=== PATIENT | female | born 1975 | race Caucasian/White ===

== ENCOUNTER 2020-04-03 10:27 | Outpatient (CLI) | payer OTHER, SELFPAY | END 2020-04-03 10:28 | disposition home or self-care (01) | LOC: LAB 10:35 | PROVIDERS: Visit Provider Internal Medicine | DX: R21 Rash and other nonspecific skin eruption (principal) | CPT/HCPCS: 86003 ==

== ENCOUNTER → 2020-05-01 10:13 | Outpatient (BNVA) | payer OTHER, SELFPAY | PROVIDERS: PCP Internal Medicine; Referring Provider Internal Medicine; Visit Provider Dermatology | DX: L24.9 Irritant contact dermatitis, unspecified cause (principal) | CPT/HCPCS: 99203 ==

== ENCOUNTER → 2020-05-14 15:40 | Outpatient (BNVA) | payer OTHER, SELFPAY | PROVIDERS: PCP Internal Medicine; Visit Provider Dermatology | DX: L24.9 Irritant contact dermatitis, unspecified cause (principal) | CPT/HCPCS: 99212; 99213 ==

== ENCOUNTER 2020-07-16 08:05 | Outpatient (CLI) | payer OTHER, SELFPAY ==
--- NOTE | 2020-07-16 08:11 | MM_ITS ---
WS: [id number] BILATERAL SCREENING DIGITAL MAMMOGRAM WITH CAD HISTORY: SCREENING COMPARISON: 07/05/2019, 06/19/2018 and 06/17/2017 Bilateral CC and MLO views submitted. Computer aided detection analyzed. Breast composition: There are scattered areas of fibroglandular density. No suspicious masses, microc alcifications or architectural distortion. Asymmetries and nodules are most prominent throughout the LEFT breast. This pattern has been present over multiple prior years. MM/[place] [id number] IMPRESSION: BI-RADS: 2-Benign FOLLOW UP: 1 Year Follow-up
== END 2020-07-16 08:06 | disposition home or self-care (01) ==
LOC: RADSHAW 08:10
PROVIDERS: PCP Internal Medicine; Visit Provider Internal Medicine
DX: Z12.31 Encounter for screening mammogram for malignant neoplasm of breast (principal)
CPT/HCPCS: 77067

== ENCOUNTER → 2020-08-10 13:02 | Outpatient (BNVA) | payer OTHER, SELFPAY | PROVIDERS: PCP Internal Medicine; Visit Provider Nurse Practitioner Family | DX: Z20.828 Contact with and (suspected) exposure to other viral communicable diseases (principal) | CPT/HCPCS: 87635 ==

== ENCOUNTER → 2021-04-28 13:34 | Outpatient (BNVA) | payer OTHER, SELFPAY | PROVIDERS: PCP Internal Medicine; Visit Provider Internal Medicine | DX: Z15.89 Genetic susceptibility to other disease (principal); M25.50 Pain in unspecified joint; H20.9 Unspecified iridocyclitis; Z11.59 Encounter for screening for other viral diseases; Z11.1 Encounter for screening for respiratory tuberculosis; M54.5 Low back pain; R21 Rash and other nonspecific skin eruption; Z79.899 Other long term (current) drug therapy | CPT/HCPCS: 36415; 99204 ==

== ENCOUNTER 2021-04-28 16:03 | Outpatient (CLI) | payer OTHER, SELFPAY ==
--- NOTE | 2021-04-28 16:14 | XR_ITS ---
WS: [id number] XR foot LT 2V [id number] REASON FOR EXAM: M25.50 - Pain in unspecified joint FINDINGS: The joint spaces of the forefoot, midfoot, and hindfoot are intact and well preserved. No bony abnormality is identified within the forefoot, midfoot, or hindfoot. No soft tissue abnormality is identified. On a single view there is an abnormality of the distal most left fibula which is a lesion with mixed sclerosis and lucency in a bubbly pattern. Nonaggressive in appearance. XR/XR foot LT 2V [id number] IMPRESSION: No significant abnormality of the foot. Possible benign cartilage tumor of the distal left fibula. Enchondroma, chondro myxoid fibroma? No previous examination for comparison.
--- NOTE | 2021-04-28 16:14 | XR_ITS ---
WS: [id number] XR hand RT 2V [id number] REASON FOR EXAM: Z15.89 - Genetic susceptibility to other disease FINDINGS: The joint spaces of the right hand are intact and well preserved. No bony abnormality is identified. No soft tissue abnormalities identified. XR/XR hand RT 2V 28082 IMPRESSION: No significant abnormality.
--- NOTE | 2021-04-28 16:14 | XR_ITS ---
WS: [id number] XR foot RT 2V 58763 REASON FOR EXAM: M25.50 - Pain in unspecified joint FINDINGS: The joint spaces of the forefoot, midfoot, and hindfoot are intact and well preserved. No bony abnormality identified within the forefoot, midfoot, or hindfoot. No soft tissue abnormality XR/XR foot RT 2V 01083 IMPRESSION: No significant abnormality.
--- NOTE | 2021-04-28 16:14 | XR_ITS ---
WS: [id number] XR hand LT 2V 93541 REASON FOR EXAM: Z15.89 - Genetic susceptibility to other disease FINDINGS: The joint spaces of the hand are intact and well preserved. No bony abnormality is identified. No soft tissue abnormality. XR/XR hand LT 2V 05649 IMPRESSION: No significant abnormality.
--- NOTE | 2021-04-28 16:14 | XR_ITS ---
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 Normal intervertebral disc spaces appear Normal thoracic spine alignment. XR/XR thoracic spine 3V* 63722 IMPRESSION: No significant abnormality.
--- NOTE | 2021-04-28 16:14 | XR_ITS ---
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 Intervertebral disc spaces are well preserved. Normal facet joints. No spondylolisthesis or spondylolysis. XR/XR lumbar spine 2-3V* 14326 IMPRESSION: No significant abnormality.
--- NOTE | 2021-04-28 16:14 | XR_ITS ---
WS: [id number] XR sacroiliac jts m 3V 21049 REASON FOR EXAM: L40.9 - Psoriasis, unspecified FINDINGS: Sacroiliac joints are well defined with intact cortical margins. No bridging or fusion. No erosions. XR/XR sacroiliac jts m 3V 50594 IMPRESSION: No significant abnormality.
== END 2021-04-28 16:04 | disposition home or self-care (01) ==
LOC: RAD 16:08
PROVIDERS: PCP Internal Medicine; Visit Provider Internal Medicine
DX: L40.9 Psoriasis, unspecified (principal); Z15.89 Genetic susceptibility to other disease; M25.50 Pain in unspecified joint; Z11.59 Encounter for screening for other viral diseases; Z11.1 Encounter for screening for respiratory tuberculosis
CPT/HCPCS: 72072; 72100; 72202; 73120; 73620; 80053; 85025; 85651; 86140; 86431; 86480; 86704; 86803; 86812; 87340

== ENCOUNTER 2021-07-16 08:15 | Outpatient (CLI) | payer OTHER, SELFPAY ==
--- NOTE | 2021-07-16 08:21 | MM_ITS ---
WS: [id number] BILATERAL SCREENING DIGITAL MAMMOGRAM WITH CAD HISTORY: SCREENING COMPARISON: 07/16/2020, 07/05/2019 06/19/2018 Bilateral CC and MLO views submitted. Computer aided detection analyzed. Breast composition: There are scattered areas of fibroglandular density. No suspicious masses, microc alcifications or architectural distortion. No change in the parenchymal pattern or mild asymmetries w ithin the upper outer quadrant of the LEFT breast. MM/[place] [id number] IMPRESSION: BI-RADS: 2-Benign FOLLOW UP: 1 Year Follow-up
== END 2021-07-16 08:16 | disposition home or self-care (01) ==
LOC: RADSHAW 08:19
PROVIDERS: PCP Internal Medicine; Visit Provider Internal Medicine
DX: Z12.31 Encounter for screening mammogram for malignant neoplasm of breast (principal)
CPT/HCPCS: 77067

== ENCOUNTER 2022-07-30 08:24 | Outpatient (CLI) | payer OTHER, SELFPAY ==
--- NOTE | 2022-07-30 08:30 | MM_ITS ---
WS: [id number] Bilateral screening 3D tomosynthesis digital mammogram, 07/30/2022 Clinical Data: SCREENING Comparison: 07/16/2021, 07/16/2020, 07/05/2019, 06/19/2018, 06/21/2007, 12/13/2016, 06/16/2016, 05/31/2016, 05/27/2015, 06/26/2014, 06/06/2014, 05/24/2014. Findings: The breast parenchymal pattern shows fibroglandular tissue. No spiculated masses or clustered calcifi cations are seen. There are no secondary signs of carcinoma. There is asymmetric tissue in the upper outer quadrant of the left breast unchanged. MM/[place] [id number] Impression: 1. Negative bilateral mammogram unchanged. 2. Recommend annual screening mammograms. BIRADS: 1-Negative FOLLOW UP: 1 Year Follow-up The CAD broadcast checker was used.
== END 2022-07-30 08:25 | disposition home or self-care (01) ==
LOC: RAD 08:25
PROVIDERS: PCP Internal Medicine; Visit Provider Internal Medicine
DX: Z12.31 Encounter for screening mammogram for malignant neoplasm of breast (principal)
CPT/HCPCS: 77063; 77067

== ENCOUNTER 2023-08-05 08:18 | Outpatient (CLI) | payer OTHER, SELFPAY ==
--- NOTE | 2023-08-05 08:29 | MM_ITS ---
WS: [id number] SCREENING DIGITAL BREAST TOMOSYNTHESIS MAMMOGRAM WITH CAD HISTORY: SCREENING COMPARISON: 07/30/2022, 07/16/2021 and 06/19/2018 Bilateral CC and MLO with tomosynthesis and synthetic mammography submitted. Computer aided detection analyzed. Breast composition: There are scattered areas of fibroglandular density. Focal asymmetry in the centr al LEFT breast seen best on the CC projection is more prominent than on prior studies. This is probab ly at or just above the nipple line on the lateral projection. Benign calcification or biopsy clip in the medial RIGHT breast. IMPRESSION: MM/[place] [id number] BI-RADS: 0-Incomplete: Need additional imaging evaluation FOLLOW UP: Need Additional Imaging LEFT breast: Spot compression views (CC and MLO). True ML. Ultrasound to follow if abnormality persists.
== END 2023-08-05 08:19 | disposition home or self-care (01) ==
PROVIDERS: PCP Internal Medicine; Visit Provider Internal Medicine
DX: Z12.31 Encounter for screening mammogram for malignant neoplasm of breast (principal)
CPT/HCPCS: 77063; 77067

== ENCOUNTER 2023-08-30 11:19 | Outpatient (CLI) | payer OTHER, SELFPAY ==
--- NOTE | 2023-08-30 11:28 | MM_ITS ---
WS: [id number] ADDITIONAL VIEWS LEFT MAMMOGRAM with tomosynthesis. LEFT BREAST ULTRASOUND HISTORY: ABNORMAL MAMMO COMPARISON: 08/05/2023, 07/30/2022 and 07/16/2021 LEFT MAMMOGRAM: Spot compression views and true ML with tomosynthesis and sympathetic mammography. Asymmetry improves towards the upper outer quadrant of the LEFT breast but there is still a 6 mm asym metry seen best on the CC projection which needs further evaluation. There is dense fibroglandular ti ssue towards the upper outer quadrant. Ultrasound to follow. LEFT BREAST ULTRASOUND 2-D and color Doppler imaging submitted. There is a dense fibrous band of tissue in the upper outer quadrant towards 12:00 of the LEFT breast. There is no mass identified. IMPRESSION: MM/[place] [id number] BI-RADS: 2-Benign FOLLOW UP: 1 Year Follow-up
== END 2023-08-30 11:20 | disposition home or self-care (01) ==
PROVIDERS: PCP Internal Medicine; Visit Provider Internal Medicine
DX: R92.8 Other abnormal and inconclusive findings on diagnostic imaging of breast (principal)
CPT/HCPCS: 76642; 77061; G0279

== ENCOUNTER 2024-04-09 10:20 | Outpatient (CLI) | payer OTHER, SELFPAY ==
--- NOTE | 2024-04-09 10:32 | US_ITS ---
WS: [id number] US transvaginal [id number] HISTORY: MENORRHALGIA COMPARISON: None available. Uterus: 6.9 cm x 3.3 cm x 2.9 cm. Small mildly atrophied uterus. No fibroid or mass. Endometrium: 0.4 cm. Normal. Right ovary: RIGHT ovary not identified. No adnexal mass. Left ovary: 2.2 cm x 1.2 cm x 1.1 cm. Normal size and vascularity, no cystic or solid masses. No free fluid in the cul-de-sac. US/US transvaginal [id number] IMPRESSION: 1. Normal endometrium. 2. Mild uterine atrophy. No fibroid or mass. 3. RIGHT ovary not visualized.
== END 2024-04-09 10:21 | disposition home or self-care (01) ==
LOC: RAD 10:20
PROVIDERS: PCP Internal Medicine; Visit Provider Internal Medicine
DX: N94.6 Dysmenorrhea, unspecified (principal); N85.8 Other specified noninflammatory disorders of uterus
CPT/HCPCS: 76830

== ENCOUNTER → 2024-07-02 09:08 | Outpatient (BNVA) | payer OTHER, SELFPAY | PROVIDERS: PCP Internal Medicine; Visit Provider Podiatrist Foot & Ankle Surgery | DX: M79.671 Pain in right foot (principal); M79.672 Pain in left foot; M72.2 Plantar fascial fibromatosis | CPT/HCPCS: 73630 ==

== ENCOUNTER 2024-08-31 08:43 | Outpatient (CLI) | payer OTHER, SELFPAY ==
--- NOTE | 2024-08-31 08:47 | MM_ITS ---
WS: [id number] SCREENING DIGITAL BREAST TOMOSYNTHESIS MAMMOGRAM WITH CAD HISTORY: SCREENING COMPARISON: 06/19/2018, 07/05/2019, 08/05/2023 and 08/30/2023 Bilateral CC and MLO with tomosynthesis and synthetic mammography submitted. Computer aided detection analyzed. Breast composition: The breasts are heterogeneously dense, which may obscure small masses. Oval mass slightly obscured in the upper outer quadrant of the LEFT breast is identified. This mass has been pr esent on prior studies but appears slightly more dense today. Suggest reevaluation. Masses measuring 10 x 4 x 8 mm. No additional suspicious findings. MM/MM scr [place] tomosynthesis [id number] IMPRESSION: BI-RADS: 0 - Incomplete: Need additional imaging evaluation FOLLOW UP: Need Additional Imaging LEFT breast: Spot compression views (CC and MLO). True ML. Ultrasound to follow if abnormality persists.
== END 2024-08-31 08:44 | disposition home or self-care (01) ==
LOC: RAD 08:46
PROVIDERS: PCP Internal Medicine; Visit Provider Internal Medicine
DX: Z12.31 Encounter for screening mammogram for malignant neoplasm of breast (principal); R92.333 Mammographic heterogeneous density, bilateral breasts; N63.21 Unspecified lump in the left breast, upper outer quadrant
CPT/HCPCS: 77063; 77067

== ENCOUNTER 2024-09-18 10:52 | Outpatient (CLI) | payer OTHER, SELFPAY ==
--- NOTE | 2024-09-18 10:56 | MM_ITS ---
WS: [id number] ADDITIONAL VIEWS LEFT MAMMOGRAM with tomosynthesis. LEFT BREAST ULTRASOUND HISTORY: ABNORMAL MAMMOGRAM COMPARISON: 08/31/2024, 08/30/2023, 08/05/2023 and 07/30/2022 LEFT MAMMOGRAM: Spot compression views and true ML with tomosynthesis and sympathetic mammography. Asymmetry in the upper outer quadrant of the LEFT breast has been noted on prior studies. Ovoid nodule seen in the lateral breast near 3:00. Nodule measures approximately 10 mm and is only seen on the CC projection. There is dense fibroglandular tissue. The entire LEFT upper outer quadrant will be evaluated by ultrasound. LEFT BREAST ULTRASOUND 2-D and color Doppler imaging submitted. Dense heterogeneous fibroglandular tissue in the upper outer quadrant. There are few small cysts in the LEFT breast at 3:00, 1 cm from the nipple which correspond in size and location to a nodule on mammography. No areas of shadowing or distortion. No masslike configuration. MM/MM diag LT tomosynthesis [id number] IMPRESSION: BI-RADS: 2 - Benign FOLLOW UP: 1 Year Follow-up
== END 2024-09-18 10:53 | disposition home or self-care (01) ==
LOC: RAD 10:54
PROVIDERS: PCP Internal Medicine; Visit Provider Nurse Practitioner Family
DX: R92.8 Other abnormal and inconclusive findings on diagnostic imaging of breast (principal); N64.89 Other specified disorders of breast; N63.25 Unspecified lump in the left breast, overlapping quadrants; R92.321 Mammographic fibroglandular density, right breast; R92.331 Mammographic heterogeneous density, right breast; N60.12 Diffuse cystic mastopathy of left breast
CPT/HCPCS: 76642; 77061; G0279